=== PATIENT | female | born 1940 | race Caucasian/White ===

== ENCOUNTER → 2023-01-02 | Outpatient (CLI) | payer MEDICARE, BC | LOC: DX 09:29 | PROVIDERS: ATTEND Internal Medicine Gastroenterology | DX: K57.30 Diverticulosis of large intestine without perforation or abscess without bleeding (principal) | CPT/HCPCS: 74270 ==

== ENCOUNTER 2025-02-09 14:02 | Observation (INO) | payer MEDICARE, BC ==
[~2025-02-09] VITALS: Ht 165.1 cm; Wt 74.8 kg
[2025-02-09 15:06] LABS: BASOPHILS % 0.7 % (0.0-1.0); EOSINOPHILS # (AUTO) 0.2 (0.0-0.4); EOSINOPHILS % 2.8 % (0.0-6.0); HEMATOCRIT 40.4 % (34.2-44.1); HEMOGLOBIN 13.4 g/dL (12.0-16.0); LYMPHOCYTES # (AUTO) 1.2 (1.0-3.2); MEAN CORPUSCULAR HEMOGLOBIN 30.1 pg (28-32); MEAN CORPUSCULAR HGB CONC 33.2 g/dL (31-35); MEAN CORPUSCULAR VOLUME 90.8 fL (81-99); MONOCYTES # (AUTO) 0.6 (0.2-0.8); MONOCYTES % 10.7 % (4.4-11.3); NEUTROPHILS # (AUTO) 3.7 (2.1-6.9); NEUTROPHILS % 64.5 % (38.7-80.0); PLATELET COUNT 255 x10e3/uL (140-360); RED BLOOD COUNT 4.45 x10e6/uL (3.6-5.1); RED CELL DISTRIBUTION WIDTH 13.1 % (11.7-14.4); WHITE BLOOD COUNT 5.72 x10e3/uL (4.8-10.8)
[2025-02-09] MEDS: HYDRALAZINE HCL 20 MG/ML VIAL IV STA (15:11)
[2025-02-09 15:37] LABS: CREATINE KINASE 44 IU/L (29-168)
[2025-02-09 15:39] LABS: ALBUMIN 4.2 g/dL (3.5-5.0); ALBUMIN/GLOBULIN RATIO 1.1 (0.8-2.0); ANION GAP 16.8 mmol/L (8-16); BILIRUBIN,TOTAL 1.4 mg/dL (0.2-1.2); CALCIUM 9.6 mg/dL (8.4-10.2); CREATININE, SERUM 0.74 mg/dL (0.57-1.11); POTASSIUM 3.8 mmol/L (3.5-5.1); TOTAL PROTEIN 8.1 g/dL (6.5-8.1)
[2025-02-09 16:14] LABS: TROPONIN I < 0.001 ng/mL (0-0.300)
[2025-02-09] MEDS: HYDRALAZINE HCL 25 MG TAB PO ONE (17:46)
[2025-02-09] MEDS ORDERED: ONDANSETRON HCL INJ 2MG/ML 2ML 2 MG/ML VIAL IV PRN (18:15)
[2025-02-09 19:31] VITALS: PULSE 66; RESP 18; TEMP 98.2
[2025-02-09 20:43] VITALS: BP 174/69; PULSE 71; RESP 21; TEMP 98.2; O2SAT 99
[2025-02-09 21:47] VITALS: BP 159/62
[2025-02-09 22:00] VITALS: BP 159/80
[2025-02-09] MEDS ORDERED: METOPROLOL TAR100 MG PO (22:03)
[2025-02-09] MEDS ORDERED: LEVOTHYROXINE50 MCG PO (22:03)
[2025-02-09] MEDS ORDERED: AMLODIPINE BESY10 MG PO (22:03)
[2025-02-09] MEDS ORDERED: XANAX0.25 MG PO (22:05)
[2025-02-09 23:01] VITALS: BP 159/80; PULSE 71; RESP 21; TEMP 98.2; O2SAT 99
[2025-02-09 23:40] VITALS: BP 153/61; PULSE 64; RESP 20; TEMP 98.3; O2SAT 99
[2025-02-10] VITALS (10 sets, daily range): BP systolic 148–189; BP diastolic 58–82; PULSE 58–72; RESP 16–18; TEMP 98–98.4; O2SAT 96–100
[2025-02-10] MEDS: SODIUM CHLORIDE 0.9% 1000ML 1,000 ML IV SCH (05:50)
[2025-02-10 06:05] LABS: BASOPHILS % 0.4 % (0.0-1.0); EOSINOPHILS # (AUTO) 0.2 (0.0-0.4); EOSINOPHILS % 3.2 % (0.0-6.0); HEMATOCRIT 36.3 % (34.2-44.1); HEMOGLOBIN 11.9 g/dL (12.0-16.0); LYMPHOCYTES # (AUTO) 1.3 (1.0-3.2); LYMPHOCYTES % 23.9 % (18.0-39.1); MEAN CORPUSCULAR HEMOGLOBIN 29.7 pg (28-32); MEAN CORPUSCULAR HGB CONC 32.8 g/dL (31-35); MEAN CORPUSCULAR VOLUME 90.5 fL (81-99); MONOCYTES # (AUTO) 0.7 (0.2-0.8); MONOCYTES % 13.1 % (4.4-11.3); NEUTROPHILS # (AUTO) 3.1 (2.1-6.9); NEUTROPHILS % 59.2 % (38.7-80.0); PLATELET COUNT 213 x10e3/uL (140-360); RED BLOOD COUNT 4.01 x10e6/uL (3.6-5.1); RED CELL DISTRIBUTION WIDTH 13.1 % (11.7-14.4); WHITE BLOOD COUNT 5.28 x10e3/uL (4.8-10.8)
[2025-02-10 06:41] LABS: ALBUMIN 3.5 g/dL (3.5-5.0); ALBUMIN/GLOBULIN RATIO 1.1 (0.8-2.0); BILIRUBIN,TOTAL 1.3 mg/dL (0.2-1.2); CALCIUM 8.6 mg/dL (8.4-10.2); CREATININE, SERUM 0.72 mg/dL (0.57-1.11); TOTAL PROTEIN 6.7 g/dL (6.5-8.1)
[2025-02-10 07:11] LABS: TROPONIN I 0.007 ng/mL (0-0.300)
[2025-02-10] MEDS: LEVOTHYROXINE SODIUM 25 MCG TABLET PO SCH (07:30)
[2025-02-10] MEDS: AMLODIPINE BESYLATE 10 MG TAB PO SCH (08:23)
[2025-02-10] MEDS: METOPROLOL TARTRATE 50 MG TAB PO SCH (08:24)
[2025-02-10] MEDS: DEXTROSE 5%/0.225% SOD CHL 1,000 ML IV ONE (10:36)
[2025-02-10 10:52] LABS: ANISOCYTOSIS MODERATE; EOSINOPHILS % (MANUAL) 1 % (0-7); LYMPHOCYTES % (MANUAL) 8 % (19-48); MONOCYTES % (MANUAL) 12 % (3.4-9.0); MYELOCYTES % (MANUAL) 1 % (0-0); NEUTROPHILS % (MANUAL) 78 % (40-74); PLATELET ESTIMATE ADEQUATE
[2025-02-10 10:53] LABS: HYPOCHROMASIA SLIGHT; PLATELET MORPHOLOGY COMMENT NORMAL; POLYCHROMASIA FEW
[2025-02-10 10:54] LABS: OVALOCYTES FEW
[2025-02-10 10:55] LABS: RBC MORPHOLOGY COMMENT ABNORMAL
[2025-02-10] MEDS: ALPRAZOLAM 0.25 MG TAB PO PRN (11:27)
[2025-02-10] MEDS: HYDRALAZINE HCL 20 MG/ML VIAL IV PRN (11:30)
[2025-02-10] MEDS ORDERED: CLONIDINE HCL 0.1 MG/24 HR 1 EA PATCH TOP SCH (12:30)
[2025-02-10 13:33] LABS: TROPONIN I 0.012 ng/mL (0-0.300)
[2025-02-10 13:38] LABS: BILIRUBIN,URINE NEGATIVE (NEGATIVE); CLARITY,URINE SL CLOUDY (CLEAR); COLOR,URINE YELLOW (YELLOW); GLUCOSE, URINE NEGATIVE (NEGATIVE); KETONES,URINE NEGATIVE (NEGATIVE); LEUKOCYTE ESTERASE ,URINE NEGATIVE (NEGATIVE); NITRITE,URINE NEGATIVE (NEGATIVE); PH,URINE 7 (5 - 7); PROTEIN,URINE DIPSTICK NEGATIVE (NEGATIVE); URINE UROBILINOGEN 0.2 mg/dL (0.2 - 1)
[2025-02-10 13:44] LABS: T3 UPTAKE 33.31 % (22.5-37.0); THYROID STIMULATING HORMONE 1.323 uIU/mL (0.350-4.940)
[2025-02-10 13:53] LABS: T4 (THYROXINE) 7.53 ug/dL (4.5-10.9)
[2025-02-10] MEDS ORDERED: HYDRALAZINE HCL 25 MG TAB PO SCH (14:00)
[2025-02-10 14:14] LABS: BACTERIA,URINE MODERATE /HPF; EPITHELIAL CELLS,URINE RARE /LPF; RBC,URINE 0-5 /HPF (0-5); WBC,URINE (MAN) 0-5 /HPF (0-5)
[2025-02-10 14:15] LABS: AMORPHOUS SEDIMENT,URINE MODERATE
[2025-02-10 14:48] LABS: CREATININE,URINE RANDOM 63.77 mg/dL (47-110)
[2025-02-10] MEDS: HYDRALAZINE HCL 25 MG TAB PO SCH (17:05)
[2025-02-10] MEDS: CLONIDINE HCL 0.1 MG/24 HR 1 EA PATCH TOP SCH (17:05)
[2025-02-11] VITALS (8 sets, daily range): BP systolic 146–191; BP diastolic 59–80; PULSE 77–103; RESP 16–19; TEMP 97.3–98.6; O2SAT 95–99
[2025-02-11 06:26] LABS: ALBUMIN 3.4 g/dL (3.5-5.0); ANION GAP 13.9 mmol/L (8-16); BILIRUBIN,TOTAL 1.7 mg/dL (0.2-1.2); CALCIUM 8.6 mg/dL (8.4-10.2); CREATININE, SERUM 0.77 mg/dL (0.57-1.11); POTASSIUM 3.9 mmol/L (3.5-5.1); TOTAL PROTEIN 6.7 g/dL (6.5-8.1)
[2025-02-11 06:44] LABS: MAGNESIUM 1.9 MG/DL (1.3-2.1); PHOSPHORUS 3.7 MG/DL (2.3-4.7)
[2025-02-11 07:01] LABS: THYROID STIMULATING HORMONE 1.753 uIU/mL (0.350-4.940)
[2025-02-11] MEDS: CLONAZEPAM 0.5 MG TAB PO PRN (13:02)
[2025-02-11] MEDS: ESCITALOPRAM OXALATE 10 MG TAB PO SCH (17:08)
[2025-02-12] MEDS ORDERED: HYDRALAZINE HCL 25 MG TAB PO SCH
[2025-02-12] MEDS ORDERED: ESCITALOPRAM OXALATE 10 MG TAB PO SCH (09:00)
[2025-02-12] MEDS ORDERED: SERTRALINE HCL 50 MG TAB PO SCH (09:00)
== END 2025-02-11 18:30 | disposition home or self-care (01) ==
LOC: ER 17:09 → ERHOLD 18:14 → MED/SURG2 20:24
PROVIDERS: ADMIT Internal Medicine; ATTEND Internal Medicine
DX: I10 Essential (primary) hypertension (principal); F41.0 Panic disorder [episodic paroxysmal anxiety]; F41.1 Generalized anxiety disorder; M17.12 Unilateral primary osteoarthritis, left knee; E03.9 Hypothyroidism, unspecified; E11.9 Type 2 diabetes mellitus without complications
CPT/HCPCS: 36415 ×3; 71046; 74176; 76770; 80053 ×3; 81001; 82550 ×2; 82570; 83036; 83735; 84100; 84156; 84436; 84443 ×2; 84479; 84484 ×2; 85025 ×2; 93005; 93306; 93976; 99284; G0378 ×3; J0360 ×3; J7030